=== PATIENT | female | born 1945 | race Caucasian/White ===

== ENCOUNTER → 2023-11-04 11:45 | Outpatient (CLI) | payer OTHER, SELFPAY ==
--- NOTE | 2023-11-04 11:48 | DI.NM.S_ITS ---
PROCEDURE: NM PAMELA PERF SPECT REST & STR Rest and exercise myocardial perfusion SPECT with gated imaging and ejection fraction RADIOPHARMACEUTICAL: 25.0 mCi Tc-99m sestamibi IV at rest and 25.4 mCi Tc-99m sestamibi IV at peak exercise. A two day-protocol was performed. INDICATIONS: SOB / ALLEN / ABN EKG CONSISTENT W/ISCHEMIA OR LBBB TECHNIQUE: Radiopharmaceutical was injected at peak stress test, and also at rest. SPECT images were obtained. SPECT myocardial perfusion images were displayed in short axis, horizontal long axis, and vertical long axis views. Gated images were reviewed using salgomed software. COMPARISON: None. CARDIAC STRESS: A standard Tereso treadmill exercise tolerance test was performed by the patient under the supervision of an attending staff. The patient exercised for 5 minutes and 4 seconds; functional aerobic impairment (AALIYAH) is 0%. Hemodynamic data: There is normal blood pressure and heart rate response to exercise stress. Patient achieved 110% of maximum predicted heart rate at peak exercise. Symptoms: Patient denied chest pain during exercise. EKG: No diagnostic EKG changes of ischemia; frequent PACs during recovery. FINDINGS: Raw data: There is good myocardial labeling by radiotracer. No significant motion artifacts. Left ventricle function: Gated images demonstrate normal left ventricle wall thickening. No segmental wall motion abnormality. No transient ischemic dilation; TID is 0.85 (normal less than 1.3). The left ventricle resting end-diastolic volume is 96 mL. Left ventricle stress ejection fraction is 71%; normal values are above 45%. Myocardial perfusion: There is normal distribution of activity in the left and right ventricular myocardium on stress prone imaging. No fixed or reversible perfusion defects. IMPRESSION: Low risk, normal treadmill nuclear stress test from inducible ischemia standpoint. 1) No perfusion evidence of ischemia or infarction based on normal stress prone imaging. 2) Normal left ventricular size, wall motion, and systolic function (EF post stress 71%). 3) No diagnostic ST changes during exercise or recovery. 4) Frequent PACs during recovery. 5) No angina during the study. 6) No prior nuclear stress test available for comparison. Dictated by: Nan Majano MD on 11/07/2023 at 16:58 Approved by: Nan Majano MD on 11/07/2023 at 17:01
== END ==
LOC: NUCM 11:47
PROVIDERS: Referring Provider Internal Medicine Cardiovascular Disease; Visit Provider Internal Medicine Cardiovascular Disease
DX: R06.02 Shortness of breath (principal); R06.09 Other forms of dyspnea; R94.31 Abnormal electrocardiogram [ECG] [EKG]
CPT/HCPCS: 78452; 93017; A9502